=== PATIENT | male | born 1985 | race Caucasian/White ===

== ENCOUNTER → 2019-12-15 | Outpatient (CLI) | payer SELFPAY ==
[2019-12-13 17:24] VITALS: BMI 25.2
== END | disposition home or self-care (01) ==
LOC: LABSPEC 13:29
PROVIDERS: Referring Provider Orthopaedic Surgery; Visit Provider Orthopaedic Surgery
DX: M25.421 Effusion, right elbow (principal)
CPT/HCPCS: 87070; 87205

== ENCOUNTER 2022-07-01 02:31 | Inpatient (IN) | payer SELFPAY ==
[2022-07-01] VITALS (10 sets, daily range): BP systolic 150–198; BP diastolic 106–127; PULSE 94–120; RESP 16–20; TEMP 36.1–37; O2SAT 96–100; BMI 27.8
--- NOTE | 2022-07-01 02:46 | RAD_ITS ---
EXAM: XR CHEST, 2 VIEWS CLINICAL INDICATION: chest pain TECHNIQUE: Frontal and lateral views of the chest. This report was created using Test[employer]tv report generation technology. COMPARISON: None. FINDINGS: LUNGS AND PLEURAL SPACES: Unremarkable. No consolidation or edema. No pneumothorax. No effusion. HEART: Unremarkable. Cardiac silhouette not enlarged. MEDIASTINUM: Central airways and mediastinal contour are unremarkable. BONES/JOINTS: Unremarkable. SOFT TISSUES: Unremarkable. RAD/Chest PA and Lateral IMPRESSION: No radiographic evidence of acute cardiopulmonary disease. Electronically Signed: Tyson Avendano MD at 3:40 EST ,
--- NOTE | 2022-07-01 02:48 | EKG12_ITS ---
Test Reason : CP Blood Pressure : / mmHG Vent. Rate : 101 BPM Atrial Rate : 101 BPM P-R Int : 158 ms QRS Dur : 094 ms QT Int : 348 ms P-R-T Axes : 047 047 018 degrees QTc Int : 451 ms Sinus tachycardia Otherwise normal ECG Confirmed by CARMEN FLORES, NESTOR ([id number]), news videotape editor GINGER ANTHONY ([id number]) on 07/01/2022 8:58:03 AM Referred By: BB Confirmed By:NESTOR MORALES MD
--- NOTE | 2022-07-01 02:50 | ED.VIS.CHEST ---
HPI History of Present Illness Chief Complaint: Chest Pain Informant: patient Onset/Context/Timing Onset: Weeks (1) Activity at onset: gradual and onset Timing: Intermittent and Lasts (Couple hours or so. Varies.) Quality: Positive for Aching Location: - (Right and left lower chest) Current Severity: Mild Maximum Severity: Moderate Worsened By: Nothing Relieved By: Nothing Associated Symptoms: Positive for Nausea (And abdominal cramping) and - (Anxiety. Not dyspneic but sometimes hard to breathe.) Narrative Narrative: Patient states he is an alcoholic and has been drinking on average 10-12 beers per day for the past 15 years or so. He has tried to stop before but unable. He is trying to curb his intake in the past week because he heard that you should not stop cold turkey. In that week, he has been having intermittent anxiety, chest discomfort as above, abdominal cramping, nausea, tremulousness. His last drink was 2 beers earlier this past day. When he drinks alcohol, most of the time it helps but not always. He takes no prescription medications for any other issues. He denies using any drugs or substances lately and he has not mixing liquor with the beer. He wants to stop drinking and states that is his goal. [facility] Medical History (Updated 07/01/22 @ 04:[address] Mychal Vera MD) Alcohol dependence Back pain History of cellulitis Allergy/AdvReac Type Severity Reaction Status Date / Time acetaminophen [From [place]] Allergy Intermediate Rash Verified 07/01/22 02:39 hydrocodone [From [place]] Allergy Intermediate Rash Verified 07/01/22 02:39 grass pollen Allergy Unknown Verified 07/01/22 02:39 ketorolac [From [place]] Allergy Hives Verified 07/01/22 02:39 Social History (Updated 07/01/22 @ 02:[address] Mychal Vera MD) Smoking Status: Current some day smoker tobacco type: e-cigarettes alcohol intake: current alcohol intake frequency: 3 or more drinks per day Alcohol type: beer substance use type: does not use ROS ROS ED Constitutional Constitutional ED: Reports malaise and poor appetite; Denies chills or fever(s) Eyes Eyes: Denies change in vision or diplopia ENT ENT ED: Denies rhinorrhea or sore throat Cardiovascular Cardiovascular: Reports chest pain; Denies palpitations Respiratory/Chest Respiratory/Chest: Denies cough or dyspnea Gastrointestinal Gastrointestinal: Reports abdominal pain and nausea; Denies diarrhea or vomiting Genitourinary Genitourinary ED: Denies dysuria or hematuria Musculoskeletal Musculoskeletal: Denies back pain or neck pain Integumentary Denies abscess or rash Neurologic Neurologic: Denies headache(s), paresthesias, seizures or weakness Psychiatric Psychiatric: Reports anxiety; Denies auditory hallucinations, suicidal ideation, suicidal thoughts or visual hallucinations EXAM Physical Exam Const Vital Signs: 07/01/22 02:34 07/01/22 02:37 Temperature 97 F L Temperature Source Temporal Pulse Rate 104 H Respiratory Rate 20 H Respiratory Effort Short of Breath Blood Pressure 174/127 H Blood Pressure Mean 142 Pulse Ox 99 Oxygen Delivery Method Room Air Positive well nourished and well developed Constitutional Narrative: Appears malaised but in no distress General Appearance ED: well developed and NAD HEENT Reports moist mucous membranes normocephalic and atraumatic Eyes PERRL and EOMs intact bilaterally Neck full ROM, no lymphadenopathy and supple Chest Wall inspection of chest normal Chest Narrative: Mild tenderness bilateral anterior lower chest wall in addition to upper abdomen, the latter of which is a little more tender Resp normal respiratory effort and clear to auscultation bilaterally Cardio regular rate, regular rhythm and no murmurs Rate: other Other Details: Mild tachycardia GI non-distended GI Narrative: Mild diffuse upper abdominal tenderness no guarding or rebound, soft nondistended Auscultation: normoactive bowel sounds Palpation: soft Back/Spine no CVA tenderness General Back: other FROM Extremity normal to inspection General Extremety ED: Negative for edema, pulses abnormal or tenderness General Extremity: Negative for edema or pulses abnormal Neuro oriented x3, CN's II-XII intact bilaterally and no sensory deficits noted Sensorium / Orientation: awake and alert Motor Exam: strength 5/5 throughout Psych Psych Narrative: Mild tremulousness, no seizure activity Mood & Affect: anxious Skin no rashes or lesions noted and no wounds MDM MDM MDM Narrative Medical decision making narrative: Patient has mild tachycardia, hypertensive, consistent with his symptoms of alcohol withdrawal. I think he would be appropriate for inpatient detox since he is likely physically dependent. His EKG is normal. I do not think any of this is consistent with pulmonary embolus. He has no calf tenderness or pedal edema or history of DVT/PE, recent travel immobilization or hospitalization. EKG and troponin unremarkable, his liver enzymes are elevated, likely related to alcohol use, his INR is within normal limits. Alcohol is negative right now, consistent with status of withdrawal causing the symptoms, except for maybe the chest discomfort, but I do not think that there is a dangerous cause of this it is fairly atypical and it history/nature. Patient was given Ativan and phenobarbital while work-up was being performed. He feels much better. He is amenable to admission for ramp program/detox. Lab Data Attestation: I reviewed the patient's lab results. Labs: Laboratory Results - last 24 hr 07/01/22 07/01/22 07/01/22 02:54 02:54 02:54 WBC 6.2 RBC 5.13 Hgb 16.5 Hct 46.8 MCV 91.2 MCH 32.2 H MCHC 35.3 RDW Std Deviation 39.1 RDW Coeff of Artie 11.6 Plt Count 147 L MPV 9.0 Immature Gran % (Auto) 0.300 Neut % (Auto) 63.0 Lymph % (Auto) 26.3 Pope % (Auto) 8.1 Eos % (Auto) 1.8 Baso % (Auto) 0.5 Absolute Neuts (auto) 3.9 Absolute Lymphs (auto) 1.62 Nucleated RBC % 0 PT 11.2 L INR 0.8 Sodium 135 L Potassium 3.2 L Chloride 99 Carbon Dioxide 26.0 Anion Gap 10 BUN 11 Creatinine 0.83 Estim Creat Clear Calc 137.71 Est GFR (MDRD) Af Amer 133 Est GFR (MDRD) Non-Af 110 BUN/Creatinine Ratio 13.2 Glucose 115 H Calcium 8.7 Total Bilirubin 2.20 H AST 304 H ALT 139 H Alkaline Phosphatase 68 Troponin I High Sens 9 Total Protein 7.6 Albumin 3.9 Globulin 3.7 Albumin/Globulin Ratio 1.1 Ethyl Alcohol 07/01/22 02:54 WBC RBC Hgb Hct MCV MCH MCHC RDW Std Deviation RDW Coeff of Artie Plt Count MPV Immature Gran % (Auto) Neut % (Auto) Lymph % (Auto) Pope % (Auto) Eos % (Auto) Baso % (Auto) Absolute Neuts (auto) Absolute Lymphs (auto) Nucleated RBC % PT INR Sodium Potassium Chloride Carbon Dioxide Anion Gap BUN Creatinine Estim Creat Clear Calc Est GFR (MDRD) Af Amer Est GFR (MDRD) Non-Af BUN/Creatinine Ratio Glucose Calcium Total Bilirubin AST ALT Alkaline Phosphatase Troponin I High Sens Total Protein Albumin Globulin Albumin/Globulin Ratio Ethyl Alcohol < 3.0 Radiography Chest X-Ray - ED: 2 View, Read by ED Physician and No Acute Disease Diagnostic Testing: Clinical Impression(s) from Imaging Studies Chest X-Ray 07/01/22 02:46 IMPRESSION: No radiographic evidence of acute cardiopulmonary disease. Electronically Signed: Tyson Avendano MD at 3:40 EST , Rhythm Strip Rhythm Strip: Sinus Tach Rate: 104 Ectopy: None EKG Initial EKG: Attestation: I personally reviewed and interpreted this EKG as follows: Interpretation: No Acute Injury Pattern and Sinus Tachycardia Comments: Otherwise normal EKG Discharge Plan Dx/Rx/DC Orders Clinical Impression: Alcohol withdrawal, Alcohol dependence, Chest pain, non-cardiac Disposition Disposition: Acute Care Hospital [facility]
[2022-07-01] MEDS: Ondansetron 4 MG/2 ML Vial IV (03:08)
[2022-07-01 03:10] LABS: Absolute Lymphocyte Count 1.62 X10^3/uL (0.83-4.51); Absolute Neutrophil Count 3.9 X10^3/uL (2.0-7.7); Basophil# 0.03 X10^3/uL; Basophil% 0.5 % (0-1); Eosinophil# 0.11 X10^3/uL; Eosinophils% 1.8 % (0-5); Hematocrit 46.8 % (40-54); Hemoglobin 16.5 g/dL (13.0-16.5); Lymphocyte # 1.62 X10^3/ul (0.83-4.51); Lymphocyte % 26.3 % (19-41); Mean Corp Hgb Conc 35.3 g/dL (32-36); Mean Corpuscular Hgb 32.2 pg (27.0-32.0); Mean Corpuscular Volume 91.2 fL (80-94); Monocyte% 8.1 % (0-10); NRBC Flagged by Analyzer 0 % (0-5); Neutrophil # 3.88 X10^3/uL (2.7-7.7); Platelet Count 147 K/mm3 (150-450); RBC Distribution Width CV 11.6 % (11.6-14.6); RBC Distribution Width SD 39.1 fl (35.1-43.9); Red Blood Count 5.13 M/mm3 (4.6-6.2); White Blood Count 6.2 K/mm3 (4.4-11.0)
[2022-07-01] MEDS: LORazepam 2 MG/ML Syringe 1 MG IV (03:12)
[2022-07-01] MEDS: Phenobarbital 32.4 MG Tablet 97.2 MG PO ×4 (03:13→22:24)
[2022-07-01 03:14] LABS: International Normalized Ratio 0.8; Prothrombin Time (Protime)PT. 11.2 SECONDS (11.7-14.9)
[2022-07-01 03:26] LABS: ALB/GLOB Ratio 1.1 RATIO (0.9-2.4); AST(SGOT) 304 U/L (15-37); Alanine Aminotransfer ALT/SGPT 139 U/L (16-61); Albumin, Serum 3.9 g/dL (3.2-5.0); Alkaline Phosphatase 68 U/L (45-117); Anion Gap 10 (5-15); BUN 11 mg/dL (7-18); BUN/Creat Ratio 13.2 RATIO (10-20); Calcium,Total 8.7 mg/dL (8.5-10.1); Chloride 99 mmol/L (98-107); Creatinine, Serum 0.83 mg/dL (0.70-1.30); EST Glomerular Filtration Rate 110 mL/min (>60); Est Glom Filt Rate - Afr Amer 133 mL/min (>60); Estimated Creatinine Clearance 137.71 ml/min; Globulin 3.7 g/dL (2.2-4.2); Glucose 115 mg/dL (74-106); Potassium 3.2 mmol/L (3.5-5.1); Protein, Total 7.6 g/dL (6.4-8.2); Sodium Level 135 mmol/L (136-145); Troponin-I HS 9 pg/mL (3.0-78.0)
[2022-07-01 03:42] LABS: Alcohol, Blood (Medical)-Serum < 3.0 mg/dL
--- NOTE | 2022-07-01 06:31 | PCM.HP.STD ---
[facility] - General General Date of Admission: 07/01/22 Date of Service: 07/01/22 Chief Complaint: Desire for detox HPI Narrative ANDRES CLIFFORD, is a 37 M with a history of ALK multiple and tobacco use who presented to [facility] 07/01 with increased anxiety and chest pain. In the ED medical work-up was negative for chest pain but he did disclose that he was withdrawing and would like detox. Hospitalist contacted for admission. He reports that he has been drinking for about 21 years and primarily drinks beer and for the past several years drinks 10-15 beers a day. This past week he has tried to start cutting down and for the past several days has alternated between 2-4 beers a day with his most recent drink being 2 beers roughly 4 hours prior to presentation. He reports that he had started becoming shaky and was hallucinating a little bit but was unable to describe it further and had markedly increased anxiety which prompted him to come to the ED. he was given Ativan and a dose of phenobarb in the ED and was somewhat tired upon exam but reported feeling slightly better. Was somewhat of a poor historian but did report he wanted help with his drinking and did request detox. Denies any seizures, has never gone through withdrawal before, longest he is gone without a drink in the past 20 years has been a day or 2. Denies any chest pain or other pain at the time of exam, denies abdominal pain, denies nausea, no change in his breathing, no other complaints and reports his anxiety is better at this time. [facility] Medical History (Updated 07/01/22 @ 04:[address] Mychal Vera MD) Alcohol dependence Back pain History of cellulitis Allergy/AdvReac Type Severity Reaction Status Date / Time acetaminophen [From [place]] Allergy Intermediate Rash Verified 07/01/22 02:39 hydrocodone [From [place]] Allergy Intermediate Rash Verified 07/01/22 02:39 grass pollen Allergy Unknown Verified 07/01/22 02:39 ketorolac [From Toradol] Allergy Hives Verified 07/01/22 02:39 Social History (Updated 07/01/22 @ 02:[address] Mychal Vera MD) Smoking Status: Current some day smoker tobacco type: e-cigarettes alcohol intake: current alcohol intake frequency: 3 or more drinks per day Alcohol type: beer substance use type: does not use ROS Constitutional Constitutional: Denies change in weight, chills, fever(s) or night sweats Eyes Eyes: Denies change in vision ENT HEENT: Denies headache(s), nasal congestion or sore throat Cardiovascular Cardiovascular: Reports other Details: Feels he would have some chest pain he was anxious leading up to presentation Respiratory/Chest Respiratory/Chest: Denies cough or productive cough Gastrointestinal Gastrointestinal: Reports other Details: denies changes in bowel or bladder ; Denies abdominal pain Genitourinary Genitourinary: Reports other Details: denies changes in urination Musculoskeletal Musculoskeletal: Denies joint pain Neurologic Neurologic: Reports other Details: Feels slightly tremulous but feels this is improving ; Denies dizziness, focal weakness, numbness or tingling Psychiatric Psychiatric: Reports anxiety Hematologic/Lymphatic Hematologic/Lymphatic: Denies easy bleeding Allergic/Immunologic Allergic/Immunologic: Reports other Details: denies rashes Vital Signs Vital Signs Vital Signs: 07/01/22 02:34 07/01/22 02:37 07/01/22 04:32 Temperature 97 F L Temperature Source Temporal Pulse Rate 104 H 94 Respiratory Rate 20 H 16 Respiratory Effort Short of Breath Blood Pressure 174/127 H 167/110 H Blood Pressure Mean 142 129 Pulse Ox 99 97 Oxygen Delivery Method Room Air Room Air 07/01/22 05:25 Temperature 97.8 F Temperature Source Oral Pulse Rate 95 Respiratory Rate 16 Respiratory Effort Blood Pressure 167/110 H Blood Pressure Mean 129 Pulse Ox 97 Oxygen Delivery Method Room Air Weight Weight: 95.708 kg Body Mass Index (BMI) 27.8 Physical Exam Const alert Constitutional Narrative: Answered orientation questions appropriately but did seem somewhat confused on timelines had a hard time answering certain questions HEENT normocephalic and head/scalp atraumatic Eyes EOMs intact bilaterally Neck supple Resp normal respiratory effort and clear to auscultation bilaterally Cardio regular rate and regular rhythm GI soft to palpation and non-tender GI Narrative: No rebound, guarding, rigidity Extremity normal to inspection Skin no rashes or lesions noted Neuro moves all extremities Neuro Narrative: No overt focal neurological deficits appreciated Psych affect normal Results Lab / Micro Data Result Diagrams: 07/01/22 02:54 07/01/22 02:54 Labs: Laboratory Results - last 24 hr 07/01/22 02:54: WBC 6.2, RBC 5.13, Hgb 16.5, Hct 46.8, MCV 91.2, MCH 32.2 H, MCHC 35.3, RDW Std Deviation 39.1, RDW Coeff of Artie 11.6, Plt Count 147 L, MPV 9.0, Immature Gran % (Auto) 0.300, Neut % (Auto) 63.0, Lymph % (Auto) 26.3, [place] % (Auto) 8.1, Eos % (Auto) 1.8, Baso % (Auto) 0.5, Absolute Neuts (auto) 3.9, Absolute Lymphs (auto) 1.62, Nucleated RBC % 0 07/01/22 02:54: PT 11.2 L, INR 0.8 07/01/22 02:54: Sodium 135 L, Potassium 3.2 L, Chloride 99, Carbon Dioxide 26.0, Anion Gap 10, BUN 11, Creatinine 0.83, Estim Creat Clear Calc 137.71, Est GFR (MDRD) Af Amer 133, Est GFR (MDRD) Non-Af 110, BUN/Creatinine Ratio 13.2, Glucose 115 H, Calcium 8.7, Total Bilirubin 2.20 H, AST 304 H, ALT 139 H, Alkaline Phosphatase 68, Troponin I High Sens 9, Total Protein 7.6, Albumin 3.9, Globulin 3.7, Albumin/Globulin Ratio 1.1 07/01/22 02:54: Ethyl Alcohol < 3.0 Rhythm Strip Rhythm Strip: Sinus Tach Rate: 104 Ectopy: None Radiology Impression Chest X-Ray 07/01/22 02:46 IMPRESSION: No radiographic evidence of acute cardiopulmonary disease. Electronically Signed: Tyson Avendano MD at 3:40 EST , Assessment & Plan Assessment/Plan (1) Alcohol withdrawal: PLAN: Plan #Alcohol use disorder - We will begin CIWA every 4 for 24 hours, then every 6 for 24 hours, then every 12 until discharge -Will begin ativan taper d/t new liver dysfunction -Gabapentin 300 mg every 8 as needed -Will start Bentyl and hydroxyzine as needed as well as loperamide as needed -Trazodone 100 mg p.o. nightly as needed sleep -Begin thiamine and folic acid supplementation -Zofran as needed for nausea -Case management consult to assist with discharge planning -EtOH and drug screen will be obtained #Transaminitis No overt abdominal pain Will obtain hepatitis panel and right upper quadrant ultrasound Trend CMP #Tobacco use Would like nicotine patches as needed #DVT prophylaxis: Ambulatory, low risk Charges/Coding Visit Charges Inpatient E&M: 85808 Init Hosp L2
--- NOTE | 2022-07-01 07:06 | US_ITS ---
STUDY: ABDOMINAL ULTRASOUND - RIGHT UPPER QUADRANT REASON FOR VISIT: Male, 37 years old transaminitis TECHNIQUE: Ultrasound evaluation of the right upper quadrant was performed with real-time and static skelton-scale imaging. TECHNICAL QUALITY: Adequate. COMPARISON: None. FINDINGS: Liver: The liver is enlarged and measures 19.8 cm. There is increased echogenicity consistent with fatty infiltration. The bile ducts are within normal limits. There is hepatic color flow. The direction of portal flow is hepatopetal. There is no demonstrated mass lesion. Gallbladder: Normal distended gallbladder. The gallbladder wall measures 2.0 mm. There is a negative sonographic Kim''s sign. There is no pericholecystic fluid. There are no gallstones. Common Bile Duct (C.B.D.): The common bile duct measures 3.5 mm. Pancreas: Normal size of the head, body and tail of the pancreas. There is normal echogenicity of the pancreas. There is no demonstrated pancreatic mass or cyst. Right Kidney: Normal size of the right kidney. The right kidney measures 11.2 cm x 6.3 cm x 6.5 cm. Normal renal cortex. The right cortex measures 2.1 cm. There is no demonstrated renal mass or cyst. There is no right hydronephrosis. US/Liver IMPRESSION: Hepatomegaly and fatty infiltration of the liver. Electronically Signed: Js Posey MD at 9:43 EST ,
--- NOTE | 2022-07-01 07:12 | PN.HOSP_ITS ---
Subjective Subjective Patient is a 37-year-old gentleman with history of chronic alcohol dependence admitted with acute alcohol withdrawal Objective Data Objective Data Vital Signs: Vital Signs Temp Pulse Resp BP Pulse Ox O2 Del Method 98.2 F 95 16 150/106 H 96 Room Air 07/01/22 06:44 07/01/22 06:44 07/01/22 06:44 07/01/22 06:44 07/01/22 06:44 07/01/22 06:44 Oxygen Delivery Method Room Air Weight: 95.708 kg Body Mass Index (BMI) 27.8 Intake & Output: Intake and Output for Last 24 Hours 06/29/22 06/30/22 07/01/22 23:59 23:59 23:59 Intake Total 500 / 500 Balance 500 / 500 Lab / Micro Data Result Diagrams: 07/01/22 02:54 07/01/22 02:54 Labs: Laboratory Results - last 24 hr 07/01/22 02:54: WBC 6.2, RBC 5.13, Hgb 16.5, Hct 46.8, MCV 91.2, MCH 32.2 H, MCHC 35.3, RDW Std Deviation 39.1, RDW Coeff of Artie 11.6, Plt Count 147 L, MPV 9.0, Immature Gran % (Auto) 0.300, Neut % (Auto) 63.0, Lymph % (Auto) 26.3, [place] % (Auto) 8.1, Eos % (Auto) 1.8, Baso % (Auto) 0.5, Absolute Neuts (auto) 3.9, Absolute Lymphs (auto) 1.62, Nucleated RBC % 0 07/01/22 02:54: PT 11.2 L, INR 0.8 07/01/22 02:54: Sodium 135 L, Potassium 3.2 L, Chloride 99, Carbon Dioxide 26.0, Anion Gap 10, BUN 11, Creatinine 0.83, Estim Creat Clear Calc 137.71, Est GFR (MDRD) Af Amer 133, Est GFR (MDRD) Non-Af 110, BUN/Creatinine Ratio 13.2, Glucose 115 H, Calcium 8.7, Total Bilirubin 2.20 H, AST 304 H, ALT 139 H, Alkaline Phosphatase 68, Troponin I High Sens 9, Total Protein 7.6, Albumin 3.9, Globulin 3.7, Albumin/Globulin Ratio 1.1 07/01/22 02:54: Ethyl Alcohol < 3.0 Radiography Diagnostic Testing: Radiology Impression Chest X-Ray 07/01/22 02:46 IMPRESSION: No radiographic evidence of acute cardiopulmonary disease. Electronically Signed: Tyson Avendano MD at 3:40 EST Reading Location ID and State: [facility] / [place] Tel , Service support , Rhythm Strip Rhythm Strip: Sinus Tach Rate: 104 Ectopy: None Physical Exam Narrative GENERAL: cooperative HEENT: Atraumatic; normocephalic EYES; Anicteric, Normal Conjunctiva NECK; supple, normal thyroid, RESPIRATORY: Diminished to auscultation CARDIOVASCULAR: Regular S1 S2, GI: soft, normoactive bowel sounds, : No Renal angle tenderness; EXTREMITIES: No edema, no clubbing, MUSCULOSKELETAL: no muscle wasting NEURO: Awake; no lateralizing signs. SKIN: No Rash PSYCH; Flat affect Assessment & Plan Assessment/Plan (1) Alcohol withdrawal: PLAN: Plan Patient is a 37-year-old gentleman with history of chronic alcohol dependence admitted with acute alcohol withdrawal 1. Acute alcohol withdrawal ? Patient has been admitted to regular nursing floor started on phenobarb taper 2. Acute transaminitis ? Secondary to chronic alcohol use we will monitor 3. Elevated blood pressure ? Patient does not have an official diagnosis of hypertension blood pressure however remains markedly elevated patient started on amlodipine as well as hydralazine as needed 4. Tobacco dependence - Counseled on cessation, offered nicotine patch for tobacco cravings 5. DVT prophylaxis ? Low risk did encourage early ambulation next Due to prolonged time spent evaluating patient review of diagnostic data review of management orders subsequent adjustment of order as well as discussion with other providers involved in patient's care; 45 minutes Charges/Coding Procedures Hospitalists Procedures: [id number] Prolonged InPt Service; first hour
[2022-07-01 08:45] LABS: Amphetamine Urine VISTA NEGATIVE (<1000 ng/mL); Barbiturate Urine VISTA POSITIVE (< 200 ng/mL); Benzodiazepine Urine VISTA NEGATIVE (< 200 ng/mL); Cocaine Urine VISTA NEGATIVE (< 300 ng/mL); Ecstacy Urine VISTA NEGATIVE (< 500 ng/mL); Methadone Urine VISTA NEGATIVE (< 300 ng/mL); PCP Urine VISTA NEGATIVE (< 25 ng/mL); THC Urine VISTA NEGATIVE (< 50 ng/mL); Vista UDS pH Range 5
[2022-07-01] MEDS: Thiamine Hydrochloride 100 MG Tablet PO (08:48)
[2022-07-01] MEDS: Folic Acid 1 MG Tablet PO (08:48)
[2022-07-01] MEDS: LORazepam 1 MG Tablet PO ×2 (08:58→13:12)
[2022-07-01] MEDS: Potassium Chloride Oral Tablet 20 MEQ 40 MEQ PO (09:42)
[2022-07-01] MEDS: hydrOXYzine PAM 25 MG Capsule 50 MG PO (10:46)
[2022-07-01] MEDS: amLODIPine 10 MG Tablet PO (15:00)
--- NOTE | 2022-07-01 16:01 | CHAPLAIN ---
Type of Pastoral Visit _x__ Initial Visit ___ Follow-up Visit ___ On-call Visit ___ General Patient Visit ___ Spiritual Assessment ___ Family Conference ___ Bereavement ___ Rapid Response ___ Code Blue ___ Other (describe below) Pastoral Care Referral From _x__ Patient ___ Family ___ Nurse ___ Physician ___ Nurse Leader ___ Building Analyst/Supervisor ___ Other (describe below) Sacrament/Intervention _x__ Active listening ___ Anointing ___ Congregation ___ Bereavement ___ Communion _x__ Kiara exploration ___ _x__ Life review _x__ Prayer ___ Reconciliation ___ Sacrament of Sick _x__ Supportive presence ___ Wedding ___ Other (describe below) Pastoral Comments met this patient while he was walking in the hallways; offered to give presence to patient and he accepted; sat in room with pt and he told of his struggles to stop drinking; pt has a limited support system; pt wants to get back to work matthew but acknowledges need for some followup; pt also states that i need to get back with Esau; pt then talks about where he has been to shinto; pt states name of shinto he has visited; pt indicates same shinto as 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
[2022-07-01] MEDS: 0.9% Saline Lock 10 ML Syringe IV (18:17)
[2022-07-01] MEDS: hydrALAZINE 20 MG/ML Vial 10 MG IV (18:17)
--- NOTE | 2022-07-02 00:30 | NURSING ---
Mr. Jarrett was found in another patient's room by this RN, he was standing just inside other patient's doorway talking to other patient who was lying in bed. When asked what he was doing Mr. Jarrett stated that he was just talking to her. This RN redirected Mr. Jarrett back to his own room and informed him that it was not acceptable for him to enter any other patients room. This RN reiterated that he is only allowed to go to the refreshment room and ambulate the hallway.
[2022-07-02 03:13] VITALS: BP 161/121; PULSE 100; RESP 18; TEMP 36.7; O2SAT 100
[2022-07-02] MEDS: Phenobarbital 32.4 MG Tablet 97.2 MG PO ×3 (03:20→10:55)
[2022-07-02 06:08] LABS: HEPATITIS B SURFACE AG Negative (Negative); Hep C Antibodies <0.1 s/co ratio (0.0-0.9); Hepatitis A IgM Antibody Negative (Negative); Hepatitis B Core AB IgM Negative (Negative)
[2022-07-02 06:17] LABS: Absolute Lymphocyte Count 1.45 X10^3/uL (0.83-4.51); Absolute Neutrophil Count 5.4 X10^3/uL (2.0-7.7); Basophil# 0.02 X10^3/uL; Basophil% 0.3 % (0-1); Eosinophil# 0.15 X10^3/uL; Eosinophils% 1.9 % (0-5); Hematocrit 44.7 % (40-54); Hemoglobin 15.3 g/dL (13.0-16.5); Lymphocyte # 1.45 X10^3/ul (0.83-4.51); Lymphocyte % 18.6 % (19-41); Mean Corp Hgb Conc 34.2 g/dL (32-36); Mean Corpuscular Volume 93.5 fL (80-94); Mean Platelet Vol. 9.3 fl (6.2-12.0); Monocyte# 0.74 X10^3/uL; Monocyte% 9.5 % (0-10); NRBC Flagged by Analyzer 0 % (0-5); Neutrophil # 5.38 X10^3/uL (2.7-7.7); Neutrophil % 69.1 % (47-70); Platelet Count 127 K/mm3 (150-450); RBC Distribution Width CV 11.8 % (11.6-14.6); RBC Distribution Width SD 40.7 fl (35.1-43.9); Red Blood Count 4.78 M/mm3 (4.6-6.2); White Blood Count 7.8 K/mm3 (4.4-11.0)
[2022-07-02 06:41] LABS: AST(SGOT) 133 U/L (15-37); Alanine Aminotransfer ALT/SGPT 105 U/L (16-61); Albumin, Serum 3.6 g/dL (3.2-5.0); Alkaline Phosphatase 52 U/L (45-117); Anion Gap 7 (5-15); BUN 8 mg/dL (7-18); BUN/Creat Ratio 10.9 RATIO (10-20); Bilirubin, Direct 0.58 mg/dL (0.00-0.30); Calcium,Total 8.8 mg/dL (8.5-10.1); Chloride 101 mmol/L (98-107); Creatinine, Serum 0.74 mg/dL (0.70-1.30); EST Glomerular Filtration Rate 127 mL/min (>60); Est Glom Filt Rate - Afr Amer 154 mL/min (>60); Estimated Creatinine Clearance 154.46 ml/min; Globulin 3.5 g/dL (2.2-4.2); Glucose 104 mg/dL (74-106); Magnesium 2.4 mg/dL (1.6-2.6); Phosphorus 2.9 mg/dL (2.5-4.9); Potassium 3.7 mmol/L (3.5-5.1); Protein, Total 7.1 g/dL (6.4-8.2); Sodium Level 133 mmol/L (136-145)
[2022-07-02] MEDS: Folic Acid 1 MG Tablet PO (08:24)
[2022-07-02] MEDS: Thiamine Hydrochloride 100 MG Tablet PO (08:24)
[2022-07-02] MEDS: amLODIPine 10 MG Tablet PO (08:26)
[2022-07-02] MEDS: hydrOXYzine PAM 25 MG Capsule 50 MG PO (08:26)
[2022-07-02 08:27] VITALS: BP 200/149; PULSE 115; RESP 16; TEMP 36.8; O2SAT 100
[2022-07-02 08:31] VITALS: BP 173/123
[2022-07-02 09:45] VITALS: BP 175/131; PULSE 130
--- NOTE | 2022-07-02 10:05 | PCM.PN.HOSP ---
Subjective Subjective Patient still still has tremors at rest. Blood pressure well controlled added scheduled HCTZ Objective Data Objective Data Vital Signs: Vital Signs Temp Pulse Resp BP Pulse Ox O2 Del Method 98.3 F 130 H 16 175/131 H 100 Room Air 07/02/22 08:27 07/02/22 09:45 07/02/22 08:27 07/02/22 09:45 07/02/22 08:27 07/02/22 08:27 Oxygen Delivery Method Room Air Weight: 95.708 kg Body Mass Index (BMI) 27.8 Intake & Output: Intake and Output for Last 24 Hours 06/30/22 07/01/22 07/02/22 23:59 23:59 23:59 Intake Total 500 / 500 Balance 500 / 500 Lab / Micro Data Result Diagrams: 07/02/22 05:43 07/02/22 05:43 Labs: Laboratory Results - last 24 hr 07/01/22 09:45: Ammonia 36.0 H 07/02/22 05:43: WBC 7.8, RBC 4.78, Hgb 15.3, Hct 44.7, MCV 93.5, MCH 32.0, MCHC 34.2, RDW Std Deviation 40.7, RDW Coeff of Artie 11.8, Plt Count 127 L, MPV 9.3, Immature Gran % (Auto) 0.600, Neut % (Auto) 69.1, Lymph % (Auto) 18.6 L, [place] % (Auto) 9.5, Eos % (Auto) 1.9, Baso % (Auto) 0.3, Absolute Neuts (auto) 5.4, Absolute Lymphs (auto) 1.45, Nucleated RBC % 0 07/02/22 05:43: Sodium 133 L, Potassium 3.7, Chloride 101, Carbon Dioxide 25.0, Anion Gap 7, BUN 8, Creatinine 0.74, Estim Creat Clear Calc 154.46, Est GFR (MDRD) Af Amer 154, Est GFR (MDRD) Non-Af 127, BUN/Creatinine Ratio 10.9, Glucose 104, Calcium 8.8, Phosphorus 2.9, Magnesium 2.4, Total Bilirubin 2.90 H, Direct Bilirubin 0.58 H, AST 133 H, ALT 105 H, Alkaline Phosphatase 52, Total Protein 7.1, Albumin 3.6, Globulin 3.5, Albumin/Globulin Ratio 1.0 Rhythm Strip Rhythm Strip: Sinus Tach Rate: 104 Ectopy: None Physical Exam Narrative GENERAL: cooperative HEENT: Atraumatic; normocephalic EYES; Anicteric, Normal Conjunctiva NECK; supple, normal thyroid, RESPIRATORY: Diminished to auscultation CARDIOVASCULAR: Regular S1 S2, GI: soft, normoactive bowel sounds, : No Renal angle tenderness; EXTREMITIES: No edema, no clubbing, MUSCULOSKELETAL: no muscle wasting NEURO: Awake; no lateralizing signs. SKIN: No Rash PSYCH; Flat affect Assessment & Plan Assessment/Plan (1) Alcohol withdrawal: PLAN: Plan Patient is a 37-year-old gentleman with history of chronic alcohol dependence admitted with acute alcohol withdrawal 1. Acute alcohol withdrawal ? Patient has been admitted to regular nursing floor started on phenobarb taper ? 07/02/2022; patient still has symptoms 2. Acute transaminitis ? Secondary to chronic alcohol use we will monitor 3. Elevated blood pressure ? Patient does not have an official diagnosis of hypertension blood pressure however remains markedly elevated patient started on amlodipine as well as hydralazine as needed ? 07/02/2022 patient blood pressure control not optimal added scheduled HCTZ 4. Tobacco dependence - Counseled on cessation, offered nicotine patch for tobacco cravings 5. DVT prophylaxis ? Low risk did encourage early ambulation next Charges/Coding Visit Charges Inpatient E&M: 70335 Subs Hosp L2
[2022-07-02] MEDS: hydroCHLOROthiazide 25 MG Tablet PO (10:55)
[2022-07-02 10:57] VITALS: BP 159/109; PULSE 117; RESP 16; TEMP 36.7; O2SAT 100
--- NOTE | 2022-07-02 11:52 | PCM.DC.SUM ---
Providers Date of Admission: 07/01/22 Date of Discharge: 07/02/22 Primary Care Physician: No Primary Care Phys Reason For Visit: ALCOHOL WITHDRAWL AND DEPENDENCE Diagnosis Discharge Diagnosis (1) Alcohol withdrawal: Status: Acute Code(s): F10.939 - Alcohol use, unspecified with withdrawal, unspecified Plan Patient is a 37-year-old gentleman with history of chronic alcohol dependence admitted with acute alcohol withdrawal 1. Acute alcohol withdrawal ? Patient has been admitted to regular nursing floor started on phenobarb taper ? 07/02/2022; patient still has symptoms -Patient left AGAINST MEDICAL ADVICE effort made for patient to resend his decision proved futile 2. Acute transaminitis ? Secondary to chronic alcohol use we will monitor 3. Elevated blood pressure ? Patient does not have an official diagnosis of hypertension blood pressure however remains markedly elevated patient started on amlodipine as well as hydralazine as needed ? 07/02/2022 patient blood pressure control not optimal added scheduled HCTZ 4. Tobacco dependence - Counseled on cessation, offered nicotine patch for tobacco cravings 5. DVT prophylaxis ? Low risk did encourage early ambulation next Hospital Course Summary of Care Provided Minutes Spent on Discharge: 35 Weight / BMI Weight Weight: 95.708 kg Body Mass Index (BMI) 27.8 ABG / Lab / Microbiology Data Result Diagrams: 07/02/22 05:43 07/02/22 05:43 Laboratory: Laboratory Results - last 24 hr 07/01/22 09:45: Hepatitis A IgM Ab Negative, Hep Bs Antigen Negative, Hep B Core IgM Ab Negative, Hepatitis C Ab (EIA) <0.1, Hep C Ab Comment Comment 07/02/22 05:43: WBC 7.8, RBC 4.78, Hgb 15.3, Hct 44.7, MCV 93.5, MCH 32.0, MCHC 34.2, RDW Std Deviation 40.7, RDW Coeff of Artie 11.8, Plt Count 127 L, MPV 9.3, Immature Gran % (Auto) 0.600, Neut % (Auto) 69.1, Lymph % (Auto) 18.6 L, [place] % (Auto) 9.5, Eos % (Auto) 1.9, Baso % (Auto) 0.3, Absolute Neuts (auto) 5.4, Absolute Lymphs (auto) 1.45, Nucleated RBC % 0 07/02/22 05:43: Sodium 133 L, Potassium 3.7, Chloride 101, Carbon Dioxide 25.0, Anion Gap 7, BUN 8, Creatinine 0.74, Estim Creat Clear Calc 154.46, Est GFR (MDRD) Af Amer 154, Est GFR (MDRD) Non-Af 127, BUN/Creatinine Ratio 10.9, Glucose 104, Calcium 8.8, Phosphorus 2.9, Magnesium 2.4, Total Bilirubin 2.90 H, Direct Bilirubin 0.58 H, AST 133 H, ALT 105 H, Alkaline Phosphatase 52, Total Protein 7.1, Albumin 3.6, Globulin 3.5, Albumin/Globulin Ratio 1.0 Meaningful Use Info Meaningful Use Diagnoses (Choose all that apply): None applicable Discharge Plan Admission Admit Date/Time: 07/01/22 05:02 Attending Provider: Facundo Horn Primary Care Provider: Care Physician,No Primary Consulting Providers: Belinda Lord Discharge Orders/Prescriptions Referrals / Follow Up: Care Physician,No Primary [Primary Care Provider] - Disposition Disposition (needs filled in before D/C Order can be placed): Against Medical Advice Charges/Coding Visit Charges Inpatient E&M: 47224 Disch Hosp
== END 2022-07-02 11:54 | disposition left against medical advice (07) | DRG 894 ==
LOC: ED 03:37 → MS3 04:58 → PCU 10:17 → MS3 07-02 03:37
PROVIDERS: Admitting Provider Internal Medicine; Emergency Provider Emergency Medicine; Visit Provider Internal Medicine
DX: F10.239 Alcohol dependence with withdrawal, unspecified (principal); R17 Unspecified jaundice; F17.210 Nicotine dependence, cigarettes, uncomplicated; F41.9 Anxiety disorder, unspecified; R07.9 Chest pain, unspecified; R03.0 Elevated blood-pressure reading, without diagnosis of hypertension; Y90.0 Blood alcohol level of less than 20 mg/100 ml
CPT/HCPCS: 36415; 71046; 76705; 80053; 80074; 80307; 82077; 82140; 82248; 83735; 84100; 84484; 85025; 85610; 93005; 99284; 99406; J7030; A4216; J2405